=== PATIENT | female | born 1985 | race Caucasian/White ===

== ENCOUNTER 2017-02-05 10:10 | Emergency (ER) | payer OTHER ==
[2017-02-05 10:19] VITALS: BP 119/69; PULSE 89; TEMP 98.3; BMI 38.6
[2017-02-05] MEDS ORDERED: KETOROLAC TROMETHAMINE 60 MG/2 ML VIAL IM ONE (10:40)
[2017-02-05] MEDS ORDERED: KETOROLAC TROMETHAMINE 60 MG/2 ML VIAL ONE (10:42)
--- NOTE | 2017-02-05 10:58 | PDOC ---
History of Present Illness - General Chief Complaint: Toothache Stated Complaint: HEADACHE Time Seen by Provider: 02/05/17 10:33 History Source: Patient Exam Limitations: No Limitations - History of Present Illness Initial Comments: 02/05/17 10:50 Patient is a 31-year-old female, no significant medical history currently on no medication presents to the emergency department for evaluation of crack decayed third right upper molar with pain and pain to plantar surface of left foot. Past Medical History: Denies. Allergies: No known allergies Medications: None Family History: Non-contributory Social History: Denies smoking, alcohol use, or IVDU Review of Systems GENERAL/CONSTITUTIONAL: No fever or chills. No weakness. No weight change. HEAD, EYES, EARS, NOSE AND THROAT: No change in vision. No ear pain or discharge. No sore throat. Pain to right upper third molar, no facial edema CARDIOVASCULAR: No chest pain or shortness of breath. RESPIRATORY: No cough, wheezing, or hemoptysis. GASTROINTESTINAL: No nausea, vomiting, diarrhea or constipation. No rectal bleeding. GENITOURINARY: No dysuria, frequency, or change in urination. MUSCULOSKELETAL: No joint or muscle swelling or pain. No neck or back pain. SKIN AND BREASTS: No rash or easy bruising. NEUROLOGIC: No headache, vertigo, loss of consciousness, or loss of sensation. HEMATOLOGIC/LYMPHATIC: No anemia, easy bleeding, or history of blood clots. NO lymphadenopathy. ALLERGIC/IMMUNOLOGIC: No hives or skin allergy. No latex allergy. Physical Exam: GENERAL: The patient is awake, alert, and fully oriented, in no acute distress. HEAD: Normal with no signs of trauma. EYES: Pupils equal, round and reactive to light, extraocular movements intact, sclera anicteric, conjunctiva clear. ENT: Ears normal, nares patent, oropharynx clear without exudates. Moist mucous membranes. No uvula deviation. Tooth decay and broken tooth to right upper third molar, no visible abscess, no facial edema, no lymphadenopathy. NECK: Normal range of motion, supple without lymphadenopathy, JVD, or masses. LUNGS: Breath sounds equal, clear to auscultation bilaterally. No wheezes, and no crackles. HEART: Regular rate and rhythm, normal S1 and S2 without murmur, rub or gallop. ABDOMEN: Soft, nontender, normoactive bowel sounds. No guarding, no rebound. No masses. No bruising or abrasions MUSCULOSKELETAL: Normal range of motion, no edema. No clubbing or cyanosis. No cords, erythema, or tenderness. No CVA Tenderness with fist. NEUROLOGICAL: Cranial nerves II through XII grossly intact. Normal speech, normal gait. SKIN: Warm, Dry, normal turgor, no rashes or lesions noted. Pain without erythema or warmth to plantar surface of right foot Past History - Past Medical History Allergies/Adverse Reactions: Allergies Allergy/AdvReac Type Severity Reaction Status Date / Time No Known Allergies Allergy Verified 02/05/17 10:16 Home Medications: Ambulatory Orders Ibuprofen [Motrin -] 600 mg PO QID #28 tablet 02/05/17 Oxycodone HCl/Acetaminophen [Percocet 5-325 mg Tablet] 1 - 2 tab PO Q4H #20 tablet MDD 10 02/05/17 Penicillin V Potassium [Pen Vee K -] 500 mg PO QID #40 tablet 02/05/17 Other medical history: MOTHER DENIES MEDICAL HX - Surgical History Appendectomy: Yes - Psycho/Social/Smoking Cessation Hx Anxiety: No Suicidal Ideation: No Smoking History: Current every day smoker Have you smoked in the past 12 months: No Number of Cigarettes Smoked Daily: 2 Information on smoking cessation initiated: No Hx Alcohol Use: No Drug/Substance Use Hx: No Substance Use Type: None *Physical Exam - Vital Signs Last Vital Signs Temp Pulse Resp BP Pulse Ox 98.3 F 89 16 119/69 89 L 02/05/17 10:16 02/05/17 10:16 02/05/17 10:16 02/05/17 10:16 02/05/17 10:16 Medical Decision Making - Medical Decision Making 02/05/17 10:59 A/P: Patient here for evaluation of cracked right upper third molar. Patient with pain, headache, no facial edema or evidence of facial cellulitis. Patient will require visit to dental for possible extraction, tooth is cracked and decayed. Will prescribe antibiotics, motrin for pain, percocet for severe pain and dental follow up. Foot with pain to the left heel. No erythema edema or bruising, consistent with a plantar fasciitis. Medications that were prescribed for her tooth, Motrin , anti-inflammatories will help pain to foot, follow-up with podiatry. Ice to heal I discussed the physical exam findings, ancillary test results and final diagnoses with the patient. I answered all of the patient's questions. The patient was satisfied with the care received and felt comfortable with the discharge plan and treatment plan. The patient will call to arrange follow-up and will return to the Emergency Department with any new, persistent or worsening symptoms. *DC/Admit/Observation/Transfer Diagnosis at time of Disposition: Plantar fasciitis of left foot, Tooth decay Broken tooth Qualifiers: Encounter type: initial encounter Fracture type: closed Qualified Code(s): S02.5XXA - Fracture of tooth (traumatic), initial encounter for closed fracture - Discharge Dispostion Disposition: HOME Condition at time of disposition: Good Admit: No - Prescriptions Prescriptions: Ibuprofen [Motrin -] 600 mg PO QID #28 tablet Penicillin V Potassium [Pen Vee K -] 500 mg PO QID #40 tablet Oxycodone HCl/Acetaminophen [Percocet 5-325 mg Tablet] 1 - 2 tab PO Q4H #20 tablet MDD 10 - Patient Instructions Printed Discharge Instructions: DI for Tooth Decay, DI for Dental Pain Additional Instructions: Please follow up dental clinic, call [phone] for times and directions. Ice to heel of left foot.. motrin for pain, recommend follow up with podiatry. - Post Discharge Activity Work/School Note: Back to Work
== END 2017-02-05 11:15 | disposition home or self-care (01) ==
LOC: JERFT 10:10
DX: S02.5XXA Fracture of tooth (traumatic), initial encounter for closed fracture (principal); M72.2 Plantar fascial fibromatosis; K02.9 Dental caries, unspecified; F17.210 Nicotine dependence, cigarettes, uncomplicated
CPT/HCPCS: 99281-25

== ENCOUNTER 2018-06-07 08:58 | Emergency (ER) | payer OTHER ==
[2018-06-07 09:05] VITALS: BP 131/74; PULSE 90; TEMP 98; BMI 38.6
--- NOTE | 2018-06-07 09:45 | PDOC ---
History of Present Illness - General Chief Complaint: Injury Stated Complaint: INJURY TO LT LEG Time Seen by Provider: 06/07/18 09:12 History Source: Patient Exam Limitations: No Limitations - History of Present Illness Initial Comments: 06/07/18 11:23 Pt is a 32 y/o F who presents to the ED for L ankle pain. Pt states she was getting off of the bus yesterday when she rolled her L ankle. States that it hurts to walk and is limping at this time. Denies numbness and tingling to the extremities, weakness, fever. Past History - Travel Traveled outside of the country in the last 30 days: No Close contact w/someone who was outside of country & ill: No - Past Medical History Allergies/Adverse Reactions: Allergies Allergy/AdvReac Type Severity Reaction Status Date / Time No Known Allergies Allergy Verified 06/07/18 09:02 Home Medications: Ambulatory Orders Ibuprofen 800 mg PO TID #30 tablet 06/07/18 COPD: No - Surgical History Appendectomy: Yes - Immunization History Immunization Up to Date: Yes - Suicide/Smoking/Psychosocial Hx Smoking History: Current every day smoker Have you smoked in the past 12 months: No Number of Cigarettes Smoked Daily: 5 Information on smoking cessation initiated: No Hx Alcohol Use: No Drug/Substance Use Hx: No Substance Use Type: None Review of Systems - Review of Systems Able to Perform ROS?: Yes Comments:: 06/07/18 11:24 CONSTITUTIONAL: Absent: fever, chills, diaphoresis, generalized weakness, malaise, loss of appetite HEENT: Absent: rhinorrhea, nasal congestion, throat pain, throat swelling, difficulty swallowing, mouth swelling, ear pain, eye pain, visual Changes CARDIOVASCULAR: Absent: chest pain, loss of consciousness, palpitations, irregular heart rate, peripheral edema RESPIRATORY: Absent: cough, shortness of breath, dyspnea with exertion, orthopnea, wheezing, stridor, hemoptysis GASTROINTESTINAL: Absent: abdominal pain, abdominal distension, nausea, vomiting, diarrhea, constipation, melena, hematochezia GENITOURINARY: Absent: dysuria, frequency, urgency, hesitancy, hematuria, flank pain, genital pain MUSCULOSKELETAL: Present: L ankle pain Absent: myalgia, arthralgia, joint swelling SKIN: Absent: rash, itching, pallor HEMATOLOGIC/IMMUNOLOGIC: Absent: easy bleeding, easy bruising, lymphadenopathy, frequent infections ENDOCRINE: Absent: unexplained weight gain, unexplained weight loss, heat intolerance, cold intolerance NEUROLOGIC: Absent: headache, focal weakness or paresthesias, dizziness, unsteady gait, seizure, mental status changes, bladder or bowel incontinence PSYCHIATRIC: Absent: anxiety, depression, suicidal or homicidal ideation, hallucinations. Is the patient limited Algerian proficient: No *Physical Exam - Vital Signs Last Vital Signs Temp Pulse Resp BP Pulse Ox 98.0 F 90 18 131/74 98 06/07/18 09:03 06/07/18 09:03 06/07/18 09:03 06/07/18 09:03 06/07/18 09:03 - Physical Exam Comments: 06/07/18 11:25 GENERAL: Well developed, well nourished. Awake and alert. No acute distress. MUSCULOSKELETAL TTP of the L lateral malleolus and L calcaneous with mild swelling. Decreased ROM to the L ankle d/t pain. Normal range of motion at all other joints. No bony deformities or tenderness. No CVA tenderness. Distal pulses 2+ b/l. EXTREMITIES: No cyanosis. No clubbing. No edema. No calf tenderness. SKIN: Warm and dry. Normal capillary refill. No rashes. No jaundice. NEUROLOGICAL: Alert, awake, appropriate. Cranial nerves 2-12 intact. No deficits to light touch and temperature in face, upper extremities and lower extremities. No motor deficits in the in face, upper extremities and lower extremities. Normoreflexic in the upper and lower extremities. Normal speech. Toes are down- going bilaterally. Gait is normal without ataxia. PSYCHIATRIC: Cooperative. Good eye contact. Appropriate mood and affect. Moderate Sedation - Procedure Monitoring Vital Signs: Procedure Monitoring Vital Signs Temperature 98.0 F 06/07/18 09:03 Pulse Rate 90 06/07/18 09:03 Respiratory Rate 18 06/07/18 09:03 Blood Pressure 131/74 06/07/18 09:03 O2 Sat by Pulse Oximetry (%) 98 06/07/18 09:03 Medical Decision Making - Medical Decision Making 06/07/18 11:26 Patient is a 32-year-old female who presents to emergency department with left ankle pain status post rolling it yesterday. On exam patient with tenderness to the left lateral malleolus and calcaneus. X-ray obtained of the left ankle is negative for fracture. Most likely a sprain. We'll give supportive treatment. Orthopedic follow-up given. Discharge home I discussed the physical exam findings, ancillary test results and final diagnoses with the patient. I answered all of the patient's questions. The patient was satisfied with the care received and felt comfortable with the discharge plan and treatment plan. The Patient agrees to follow up with the primary care physician/specialist within 24-72 hours. Return precautions were given. *DC/Admit/Observation/Transfer Diagnosis at time of Disposition: Ankle sprain Qualifiers: Encounter type: initial encounter Involved ligament of ankle: unspecified ligament Laterality: left Qualified Code(s): S93.402A - Sprain of unspecified ligament of left ankle, initial encounter - Discharge Dispostion Disposition: HOME Condition at time of disposition: Stable Decision to Admit order: No - Prescriptions Prescriptions: Ibuprofen 800 mg PO TID #30 tablet - Referrals Referrals: James Guzman MD [Staff Physician] - - Patient Instructions Printed Discharge Instructions: DI for Ankle Sprain Additional Instructions: You sprained your ankle. Your x-ray was negative for broken bones. Please keep your ankle elevated while at rest above the level of your heart to reduce swelling. You may take Motrin 800 mg every 8 hours to help reduce pain and swelling. Please ice the area for 20 minute intervals at least 5 times a day to help reduce swelling. Please wear the Chris wrap. Please follow-up with orthopedics in 1 week if your symptoms are not improving. Return to the emergency department if you have worsening pain, or unable to walk , numbness and tingling of the foot, or had any changes in her symptoms. Te torciste el tobillo. Thomas radiografa fue negativa para los huesos rotos. Por favor, mantenga thomas tobillo elevado mientras descansa sobre el nivel de thomas corazn para reducir la hinchazn. Puede maadeo Motrin 800 mg cada 8 horas para ayudar a reducir el dolor y la hinchazn. Hielo en el ciaran por intervalos de 20 minutos al menos 5 veces al da para ayudar a reducir la hinchazn. Por favor use la envoltura de Chris. Por favor, pia un seguimiento con ortopedia en 1 semana si rhett sntomas no estn mejorando. Regrese a la mere de emergencias si tiene un dolor que empeora o no puede caminar, adormecimiento y hormigueo del pie, o si tiene algn cambio en rhett sntomas. - Post Discharge Activity Forms/Work/School Notes: Back to Work
[2018-06-07] MEDS ORDERED: IBUPROFEN 400 MG TABLET (FP) PO ONE ×2 (09:46→09:52)
== END 2018-06-07 11:26 | disposition home or self-care (01) ==
LOC: JERFT 08:58
DX: S93.402A Sprain of unspecified ligament of left ankle, initial encounter (principal); X58.XXXA Exposure to other specified factors, initial encounter; Y93.89 Activity, other specified; Y92.9 Unspecified place or not applicable
CPT/HCPCS: 73590-TC-LT-FY; 73610-TC-LT-FY; 73630-TC-LT; 99282-25

== ENCOUNTER 2019-03-04 11:37 | Emergency (ER) | payer OTHER | END 2019-03-04 13:02 | disposition home or self-care (01) | LOC: JERFT 11:37 ==

== ENCOUNTER 2019-07-02 10:09 | Emergency (ER) | payer OTHER ==
[2019-07-02 10:36] VITALS: BP 133/71; PULSE 94; TEMP 98.5; BMI 39.8
[2019-07-02] MEDS ORDERED: IBUPROFEN 600 MG TABLET (FP) PO ONE ×2 (11:59→12:07)
--- NOTE | 2019-07-02 12:10 | PDOC ---
History of Present Illness - General Chief Complaint: Pain Stated Complaint: SHOULDER/NECK PAIN Time Seen by Provider: 07/02/19 10:43 History Source: Patient Exam Limitations: No Limitations - History of Present Illness Initial Comments: 07/02/19 12:05 Patient is a 33-year-old female who presents to the ED with left shoulder pain and neck pain that started after a fall 2 days ago while at work. She states she slipped and landed onto her left side. She has anterior left shoulder pain and pain under her left mandible. She denies any numbness or tingling. She took aspirin this morning with little relief. Past History - Past Medical History Allergies/Adverse Reactions: Allergies Allergy/AdvReac Type Severity Reaction Status Date / Time No Known Allergies Allergy Verified 07/02/19 10:21 Home Medications: Ambulatory Orders Ibuprofen [Motrin -] 600 mg PO TID PRN #21 tablet 07/02/19 COPD: No - Surgical History Appendectomy: Yes - Immunization History Immunization Up to Date: Yes - Psycho Social/Smoking Cessation Hx Smoking History: Never smoked Have you smoked in the past 12 months: No Number of Cigarettes Smoked Daily: 5 Hx Alcohol Use: No Drug/Substance Use Hx: No Substance Use Type: None Review of Systems - Review of Systems Comments:: 07/02/19 12:06 - Review of Systems Able to Perform ROS?: Yes Constitutional: No: Fever, Chills, Loss of Appetite, Night Sweats, Weakness HEENTM: No: Eye Pain, Vision changes, Ear Pain, Throat Pain, Throat Swelling, Mouth Pain, Difficulty Swallowing Respiratory: No: Cough, Shortness of Breath, Wheezing, Sputum Production Cardiac (ROS): No: Chest Pain, Chest Tightness, Palpitations, Irregular Heart Beat, Edema ABD/GI: No: Nausea, Vomiting, Abdominal Pain, Diarrhea Musculoskeletal: No: Back Pain, Muscle Weakness; Positive: L shoulder pain, + Neck Pain Integumentary: No: Lesions, Rash Neurological: No: Headache, Numbness, Tingling, Weakness, Speech Difficulties *Physical Exam - Vital Signs Last Vital Signs Temp Pulse Resp BP Pulse Ox 98.5 F 94 H 18 133/71 98 07/02/19 10:22 07/02/19 10:22 07/02/19 10:22 07/02/19 10:22 07/02/19 10:22 - Physical Exam 07/02/19 12:07 - Physical Exam General Appearance: Nourished, Appropriately Dressed, No Distress Neck: Supple, No Lymphadenopathy (R), No Lymphadenopathy (L), No Rigidity, No Decreased range of motion; Mild tenderness to palpation to the left jaw just distal to the L mandible. No neck tenderness to palpation diffuse/midline Respiratory/Chest: Lungs Clear, Normal Breath Sounds. No Respiratory Distress, No Accessory Muscle Use Cardiovascular: Regular Rhythm, Regular Rate, S1, S2 Musculoskeletal: Normal Inspection. L shoulder with healing anterior shoulder ecchymosis and tenderness to palpation. Forward flexion to 90 degrees actively. Extremity: Normal Capillary Refill, Normal Inspection Integumentary: Normal Color, Dry. 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 There may be a questionable lucency at the distal clavicle but no discrete fracture is appreciated. She should avoid any strenuous activity. She should follow-up with orthopedics within 1 week for repeat evaluation. A prescription for Motrin has been sent to her pharmacy.. Discharge - Discharge Information Problems reviewed: Yes Clinical Impression/Diagnosis: Contusion of left shoulder Qualifiers: Encounter type: initial encounter Qualified Code(s): S40.012A - Contusion of left shoulder, initial encounter Condition: Stable Disposition: HOME - Additional Discharge Information Prescriptions: Ibuprofen [Motrin -] 600 mg PO TID PRN #21 tablet PRN Reason: Pain - Follow up/Referral Referrals: Yousuf Adams MD [Primary Care Provider] - Glenn Wright DO [Staff Physician] - - Patient Discharge Instructions Patient Printed Discharge Instructions: DI for Shoulder Pain - Post Discharge Activity Work/Back to School Note: Back to Work
== END 2019-07-02 12:55 | disposition home or self-care (01) ==
LOC: JERFT 10:09
DX: S40.012A Contusion of left shoulder, initial encounter (principal); W18.39XA Other fall on same level, initial encounter; Y93.89 Activity, other specified; Y92.89 Other specified places as the place of occurrence of the external cause
CPT/HCPCS: 73030-TC-LT-FY; 99281-25

== ENCOUNTER 2023-05-28 09:33 | Emergency (ER) | payer OTHER ==
[2023-05-28 09:51] VITALS: TEMP 98.2; BMI 41.3
[2023-05-28] MEDS ORDERED: ALBUTEROL SO4 2.5/IPRATROPIUM 0.5 INH SOL 3 ML VIAL.NEB. NEB ONE ×3 (12:01→12:35)
[2023-05-28 13:32] LABS: THROAT:GRP A STREP NOT DETECTED (NOTDETECTED)
[2023-05-28 14:11] VITALS: BP 122/85; PULSE 118; RESP 20
== END 2023-05-28 14:33 | disposition home or self-care (01) ==
LOC: JERFT 09:33
PROC: 3E0F7GC Introduction of Other Therapeutic Substance into Respiratory Tract, Via Natural or Artificial Opening (ICD-10-PCS; principal; 2023-05-28)
DX: J20.9 Acute bronchitis, unspecified (principal); J31.0 Chronic rhinitis; R05.9 Cough, unspecified; R06.2 Wheezing; Z20.822 Contact with and (suspected) exposure to COVID-19
CPT/HCPCS: 0241U-QW; 71046-TC-FY; 87651; 99284-25

== ENCOUNTER 2023-09-12 11:02 | Emergency (ER) | payer OTHER ==
[2023-09-12 11:13] VITALS: BP 125/79; PULSE 91; RESP 18; TEMP 98.2; BMI 41.7
[2023-09-12] MEDS ORDERED: KETOROLAC TROMETHAMINE 30 MG/1 ML VIAL ONE (11:59)
[2023-09-12] MEDS: KETOROLAC TROMETHAMINE 30 MG/1 ML VIAL IM ONE (12:04)
== END 2023-09-12 15:23 | disposition home or self-care (01) ==
LOC: JERFT 11:02
PROC: 3E0233Z Introduction of Anti-inflammatory into Muscle, Percutaneous Approach (ICD-10-PCS; principal; 2023-09-12)
DX: M25.512 Pain in left shoulder (principal); R07.89 Other chest pain; V49.40XA Driver injured in collision with unspecified motor vehicles in traffic accident, initial encounter
CPT/HCPCS: 71046-TC-FY; 73030-TC-LT-FY; 73200-TC-RT; 84703; 99284-25